=== PATIENT | male | born 1945 | race Caucasian/White ===

== ENCOUNTER 2017-11-22 15:37 | Emergency (ER) | payer MEDICARE, OTHER ==
[~2017-11-22] VITALS: Ht 167.6 cm; Wt 72.9 kg
--- OUTSIDE RECORDS SUMMARY | ~2017-11-22 | XMS | Clinical Summary ---
Demographics + + + | Address | [address] | | | [place] [address] | + + + | Home Phone | | + + + | Preferred Language | Unknown | + + + | Marital Status | | + + + | Congregation Affiliation | Unknown | + + + | Race | Unknown | + + + | Ethnic Group | Other Race | + + + Author + + + | Author | [facility] | + + + | Organization | [facility] | + + + | Address | Unknown | + + + | Phone | Unavailable | + + + Support +------+ + + + +-------+ | Name | Relationship | Address | Phone | +------+ + + + +-------+ ECON | [address] | | [place] | [address] | +------+ + + + +-------+ Care Team Providers + +------+ + | Care Account Representative Name | Role | Phone | + +------+ + | Matt Vora MD | PP | | + +------+ + Source Comments HESHAM is fully live on both EpicCare Ambulatory and EpicCare InPatient.[facility] Allergies + + + + + + | Active Allergy | Reactions | Severity | Noted | Comments | | | | | Date | | + + + + + + | Codeine | Hallucinations | | 12/29/19 | Fells like someone | | | | | 18 | is tickling the | | | | | | palms of his hands | | | | | | and feet | + + + + + + | Oxycodone | Tremors | | 12/29/19 | | | | | | 18 | | + + + + + + Current Medications + + +---------+---------+------+------+-------+ | Prescription | Sig. | Disp. | Refills | Star | End | Statu | | | | | | t | Date | s | | | | | | Date | | | + + +---------+---------+------+------+-------+ | levothyroxine 37.5 | Take 37.5 mcg by | | | | | Activ | | mcg oral tablet | mouth once daily. | | | | | e | + + +---------+---------+------+------+-------+ | doxazosin 2 mg | Take 2 mg by mouth | | | | | Activ | | oral tablet | once daily. | | | | | e | + + +---------+---------+------+------+-------+ | aspirin EC 81 mg | Take 81 mg by mouth | | | | | Activ | | oral tablet,delayed | once daily. | | | | | e | | release (DR/EC) | | | | | | | + + +---------+---------+------+------+-------+ | | Take 1 capsule by | 30 | 6 | 05/1 | | Activ | | triamterene-hydrochl | mouth once daily in | capsule | | 8/20 | | e | | orothiazide | the morning. 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 | + + + | Dizziness | 01/11/2017 | + + + | Bilateral tinnitus | 01/11/2017 | + + + Social History + +-------+ +--------+------+ | Tobacco Use | Types | Packs/Day | Years | Date | | | | | Used | | + +-------+ +--------+------+ | Never Smoker | | | | | + +-------+ +--------+------+ + +---+---+---+ | Smokeless Tobacco: | | | | | Never Used | | | | + +---+---+---+ + + +---------+ + | Alcohol Use | Drinks/We | oz/Week | Comments | | | ek | | | + + +---------+ + | No | | | | + + +---------+ + + + + | Sex Assigned at | Date Recorded | | | | + + + | Not on file | | + + + Last Filed Vital Signs + +---------+ + | Vital Sign | Reading | Time Taken | + +---------+ + | Blood Pressure | 160/72 | 12/28/2016 2:44 PM PDT | + +---------+ + | Pulse | 66 | 12/28/2016 2:44 PM PDT | + +---------+ + | Temperature | - | - | + +---------+ + | Respiratory Rate | - | - | + +---------+ + | Oxygen Saturation | - | - | + +---------+ + | Inhaled Oxygen | - | - | | Concentration | | | + +---------+ + | Weight | - | - | + +---------+ + | Height | - | - | + +---------+ + | Body Mass Index | - | - | + +---------+ + Plan of Treatment + + + + + | Health Maintenance | Due Date | Last Done | Comments | + + + + + | INFLUENZA VACCINE | | | | | (FLU SHOT) | 7 | | | + + + + + Results Not on filefrom Last 3 Months"
--- OUTSIDE RECORDS SUMMARY | ~2017-11-22 | XMS | Clinical Summary ---
Demographics + + + | Address | [address] | | | [place] [address] | + + + | Home Phone | | + + + | Preferred Language | Unknown | + + + | Marital Status | | + + + | Mandaen Affiliation | Unknown | + + + [...] +------+ + + + +-------+ ECON | [address] | | [place] | [address] | +------+ + + + +-------+ Care Team Providers + +------+ + | Care Fire Suppression Captain Name | Role | Phone | + +------+ + | Matt Vora MD | PP | | + +------+ + Source Comments [facility] is fully live on both EpicCare Ambulatory and EpicCare InPatient.[facility] Allergies + + + + + [...]
[~2017-11-22 15:37] MED LIST: ASPIRIN EC81 MG PO; DOXAZOSIN MESYLA1 MG PO; LEVOTHYROXINE75 MCG PO
[2017-11-22] MEDS ORDERED: METHYLPREDNISOLO4 M1 PO (15:59)
== END 2017-11-22 16:46 | disposition home or self-care (01) ==
LOC: ED 15:37
DX: L29.9 Pruritus, unspecified (principal); R06.02 Shortness of breath; T37.8X5A Adverse effect of other specified systemic anti-infectives and antiparasitics, initial encounter; Z88.5 Allergy status to narcotic agent; Z88.8 Allergy status to other drugs, medicaments and biological substances; Z79.82 Long term (current) use of aspirin; Z79.899 Other long term (current) drug therapy
CPT/HCPCS: 96374; 96376; 99282; J1200

== ENCOUNTER 2018-04-10 08:55 | Day surgery (SDC) | payer MEDICARE, OTHER ==
[~2018-04-10] VITALS: Ht 167.6 cm; Wt 72.6 kg
[~2018-04-10 08:55] MED LIST changes: +CARDURA2 MG PO; +CO Q-10400 MG PO; +FISH OIL 1,0001 EAC2 NG; +MAGNESIUM250 M1 PO; +METHYLPREDNISOLO4 M1 PO; +MULTIVITAMINS1 EAC8 PO
--- NOTE | 2018-04-10 12:00 | NUR ---
04/10/18 1200 Dorita Jansen 1155 PT ARRIVED TP PACU NONAROUSABLE ON 10L VIA MASK. ORAL AIRWAY IN PLACE, RESP EVEN AND UNLABORED.
--- NOTE | 2018-04-10 12:48 | NUR ---
DANIEL 1235: PT IS BACK TO DS FROM PACU. HE IS AWAKE AND OREINTED. HE REPORTS MINIMAL PAIN. PT STATES HE IS THIRSTY AND HUNGRY, HE IS GIVEN ICE WATER, PUDDING, AND JELLO. CALL LIGHT IS WITHIN REACH. IS AT THE BEDSIDE. NO OTHER C/O'S AT THIS TIME. WILL REASSESS WITHIN THE HOUR.
--- NOTE | 2018-04-10 13:27 | NUR ---
DANIEL 1320: PT HELPED UP OOB TO THE BATHROOM. HE REPORTS FEEL MUCH BETTER AFTER VOIDING. HE IS HELPED BACK INTO BED AND DENIES NEEDING ANYTHING.
--- NOTE | 2018-04-10 13:35 | NUR ---
PT IS RESTING COMFORTABLY IN HIS ROOM. WAITING FOR TO RETURN TO BEGIN DC PROCESS.
--- NOTE | 2018-04-10 13:59 | NUR ---
PT HAS MET DC CRITERIA AND IS ABLE TO BE DISCHARGED. DC INSTRUCTIONS ARE VERBALLY GIVEN WITH PRESENT. QUESTIONS ARE ASKED AND ANSWERED. PT IS TAKEN TO VEHICLE IN WHEELCHAIR.
--- NOTE | 2018-04-10 16:06 | OR ---
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 PROCEDURE PERFORMED: Septoplasty cautery, bilateral inferior turbinates. ANESTHESIA: General LMA. ANESTHESIOLOGIST: Rowena Olivas.NAime. PREOPERATIVE HISTORY: Mr. Mark is a 72-year-old man with a long history of nasal obstruction due to septal deformity and inferior turbinate hypertrophy unresponsive to appropriate medications. He is taken to the operating for the above-mentioned procedures. OPERATIVE PROCEDURE AND FINDINGS: After informed consent, the patient was taken to the operating room and placed in supine position where general LMA anesthesia was induced. The patient and procedure verified. The patient received preoperative intranasal oxymetazoline and intravenous Ancef. Headlight speculum exam of the nasal cavity showed a significant septal deformity on the left, a large spur inferiorly posteriorly. This was injected with 1% lidocaine with epinephrine. The spur and the septal deformity were then removed with Alta. The airway was improved. Airway improved further with speculum reduction. The inferior turbinates were then cauterized with a long handle needle point cautery starting on the left side. Multiple passes transmucosal on the medial and inferior surface of the inferior turbinate starting anteriorly extending all the way back posteriorly. Excellent reduction in size of the turbinate and improvement in the nasal passage was obtained. Same procedure on the right inferior turbinate. Minimal bleeding stopped afterwards. Packing was then placed, trimmed Merocel in equal amount each side, and coated with Neosporin tied anteriorly over a pad. The pharynx was suctioned clear Electronically Signed By: ZECHARIAH ZAHNG MD 04/10/18 1606 PATIENT NAME: DEAN MARK OPERATIVE REPORT DATE OF : 47 REPORT #: [id number] PHYSICIAN: ZECHARIAH ZHANG MD PCP: DANILO MARQUEZ MD REPORT IS CONFIDENTIAL AND NOT TO BE RELEASED WITHOUT AUTHORIZATION [facility] [address] [place], [place] [address], [place] [address] Signed of blood and secretions. The patient was then awakened, extubated, and transported to the recovery room in good condition. COMPLICATIONS: No complications. BLOOD LOSS: Minimal. SPECIMEN: None. DRAINS: None. PACKING: One piece of Merocel to each nostril. Zechariah Zhang MD GC/MODL /[id number] Copies: ~ Electronically Signed By: ZECHARIAH ZHANG MD 04/10/18 1606 PATIENT NAME: DEAN MARK OPERATIVE REPORT DATE OF : 47 REPORT #: [id number] PHYSICIAN: ZECHARIAH ZHANG MD PCP: DANILO MARQUEZ MD REPORT IS CONFIDENTIAL AND NOT TO BE RELEASED WITHOUT AUTHORIZATION
== END 2018-04-10 13:58 | disposition home or self-care (01) ==
LOC: DS 08:55 → OPS 08:55 → DS 10:30 → OPS 13:58
PROVIDERS: Otolaryngology
PROC: 09SM0ZZ Reposition Nasal Septum, Open Approach (ICD-10-PCS; principal; 2018-04-10 10:30)
PROC: 095L7ZZ Destruction of Nasal Turbinate, Via Natural or Artificial Opening (ICD-10-PCS; 2018-04-10 10:30)
DX: J34.2 Deviated nasal septum (principal); J34.3 Hypertrophy of nasal turbinates; J32.9 Chronic sinusitis, unspecified; H91.92 Unspecified hearing loss, left ear; Z79.899 Other long term (current) drug therapy
CPT/HCPCS: J0690; J1100; J2250; J2405; J2704; J3010; J7120

== ENCOUNTER 2025-09-24 05:35 | Day surgery (SDC) | payer MEDICARE, OTHER ==
[~2025-09-24] VITALS: Ht 167.6 cm; Wt 73.0 kg
[~2025-09-24 05:35] MED LIST changes: +ASPIRIN REGIMEN81 MG PO; +LACTATED RINGER'S 1,000 ML IV SCH
[2025-09-24] MEDS ORDERED: KETOROLAC TROMETHAMINE 30 MG/ML VIAL ONE ×2 (06:18→06:19)
[2025-09-24 06:23] VITALS: BP 126/84
[2025-09-24] MEDS ORDERED: LIDOCAINE HCL 2% 5 ML SDV ONE (06:44)
[2025-09-24] MEDS ORDERED: DEXAMETHASONE SOD PHOS 4 MG/ML VIAL ONE (06:44)
[2025-09-24] MEDS ORDERED: ACETAMINOPHEN 1,000 MG/100 ML VIAL ONE (06:44)
[2025-09-24] MEDS ORDERED: fentaNYL citrate 100 MCG/2 ML VIAL ONE (06:44)
[2025-09-24] MEDS ORDERED: CEFAZOLIN SODIUM 2 GM in SODIUM CHLORIDE 0.9% 100 ML IV SCH (07:00)
[2025-09-24] MEDS ORDERED: LIDOCAINE HCL 1% 5 ML SDV INJ ONE (07:00)
[2025-09-24] MEDS ORDERED: IBLOOD GLUCOSE TEST STRIP 1 EA TEST VI PRN ×2 (07:00→07:30)
[2025-09-24] MEDS ORDERED: HYDROCODONE/ACETA 5/325 TAB PO PRN (07:15)
[2025-09-24] MEDS ORDERED: PROCHLORPERAZINE EDISYLATE 10 MG/2 ML VIAL IV PRN (07:30)
[2025-09-24] MEDS ORDERED: NALOXONE HCL 0.4 MG SYR IV PRN (07:30)
[2025-09-24] MEDS ORDERED: HYDROmorphone HCL 1 MG/ML SYR IV PRN (07:30)
[2025-09-24] MEDS ORDERED: fentaNYL citrate 50 MCG/ML SDV IV PRN (07:30)
[2025-09-24] MEDS ORDERED: HYDROCODON-ACE1 EA10 PO (07:36)
[2025-09-24] MEDS ORDERED: DICLOFENAC SODI75 MG PO (07:36)
--- NOTE | 2025-09-24 07:38 | NUR ---
09/24/25 0737 aMrika Rosas 2918-PATIENT ARRIVED TO PACU ON 6L MASK NONAROUSABLE ORAL AIRWAY IN PLACE RN DOING JAW TILT TO MAINTAIN OPEN AIRWAY. SR HR 60'S IVF INFUSING. DRESSING INTACT. ICE APPLIED. GOOD CAP REFILL WARMTH AND PALPABLE PEDAL PULSE.
--- NOTE | 2025-09-24 08:08 | NUR ---
PT TO DS FROM PACU VIA STRETCHER. PT IS DROWSY, BUT RESPONSIVE TO VERBAL STIMULI AND ASKING QUESTIONS APPROPRIATELY AT THIS TIME. REPORT RECEIVED FROM DONG RN, PT AT BEDSIDE. WATER PROVIDED AT BEDSIDE, CALL LIGHT WITHIN REACH, PT AND PT STATE NO FURTHER NEEDS OR QUESTIONS AT THIS TIME.
[2025-09-24 08:09] VITALS: BP 122/69
--- NOTE | 2025-09-24 08:36 | NUR ---
PT REPORTS PT HAS MINOR SHAKING. WARM BLANKETS PROVIDED. PT STATES SHAKING IS IMPROVING. PT EDUCATED ABOUT TEMPERATURE OF OPERATING ROOM AND ANESTHESIA SIDE EFFECTS. PT AND PT STATE VERBAL UNDERSTANDING. CALL LIGHT WITHIN REACH.
--- NOTE | 2025-09-24 08:50 | NUR ---
PT REPORTS NEED TO URINE VOID. PT SITS AT BEDSIDE AND STATES NO NAUSEA/DIZZINESS. PT STANDS AND REPORTS NO CHANGE. PT TO RESTROOM W/THIS RN STANDBY ASSIST. PT GAIT IS STEADY. PT URINE VOIDS 250 ML OF CLEAR/YELLOW URINE. PT BACK TO EDGE OF BED SITTING UPRIGHT. PT ASSISTING PT WITH GETTING DRESSED. CALL LIGHT WITHIN REACH. THIS RN OUTSIDE DOOR.
[2025-09-24] MEDS ORDERED: DICLOFENAC SOD 75 MG TABEC PO SCH (09:00)
[2025-09-24 09:09] VITALS: BP 128/76
--- NOTE | 2025-09-24 09:15 | NUR ---
IN PT ROOM FOR DC EDUCATION AND VS. PT AND PT STATE VERBAL UNDERSTANDING AND NO FURTHER QUESTIONS AT THIS TIME. PT OFF OF UNIT VIA WC TO PASSENGER SIDE OF 'S VEHICLE. ALL BELONGINGS IN PT POSSESSION AT THIS TIME. PT PROVIDED ICE PACK. PT AND PT REPORT NO FURTHER NEEDS AT THIS TIME.
[2025-09-24] MEDS ORDERED: SEVOFLURANE 250 ML BTL INH ONE (13:40)
--- NOTE | 2025-09-25 10:15 | OR ---
[facility] [address] [place], [place] [address] Signed DATE OF OPERATION: 09/24/2025 SURGEON: Adam Mccormick MD PREOPERATIVE DIAGNOSIS: Medial meniscus tear, right knee. POSTOPERATIVE DIAGNOSIS: Medial meniscus tear, right knee. PROCEDURE PERFORMED: Right knee arthroscopy with partial medial meniscectomy. FULL TIME PARAMEDIC: None. ANESTHESIA: General. BLOOD LOSS: Minimal. BRIEF HISTORY: Dean is a 80-year-old gentleman with progressive pain, catching and locking in his knee. MRI was consistent with the above. Risks and benefits of operative treatment were discussed with him and he elected to proceed. Once consent was obtained, he was taken to the operating room. After adequate anesthesia, he was placed on the OR table. All downside pressure points were well padded. The left leg was placed in a well-padded leg aguilar in a flexed abducted external rotated position. The right leg was placed in well-padded leg aguilar with no tourniquet. The leg was then prepped and draped in a standard sterile fashion. The portal sites were injected using 0.25% Marcaine with epinephrine. The standard inferolateral and superolateral portals were made and the scope was introduced in the knee. ARTHROSCOPIC FINDINGS: Moderate synovitis was noted throughout the knee, particularly medially. The patella was noted to track well. 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 The medial and lateral gutters were clear. ACL and PCL were intact. Lateral compartment was intact. Medial compartment showed diffuse grade 3 to grade 4 chondromalacia over Electronically Signed By: ADAM MCCORMICK MD 09/25/25 1015 PATIENT NAME: DEAN MARK OPERATIVE REPORT DATE OF : 47 REPORT #: [id number] PHYSICIAN: ADAM MCCORMICK MD PCP: RUBINA SOARES PA-C REPORT IS CONFIDENTIAL AND NOT TO BE RELEASED WITHOUT AUTHORIZATION [facility] [address] [place], [place] [address] Signed the posterior half to 2/3rd of the medial femoral condyle, grade 2 changes on the tibia. There was a complex tear extending from midbody posteriorly. DESCRIPTION OF OPERATION: Standard inferomedial portal was established after localization using a spinal needle. The straight and curved biters were then used to trim the tear back to a stable rim. There were several large articular flaps on the medial femoral condyle that were debrided using the shaver and then the meniscus was smoothed out and feathered using the shaver. The scope was withdrawn after evacuating all debris. The portals were closed with 3-0 nylon and the knee was injected with 60 mg of Toradol. Wounds were dressed with Adaptic, ABD, and Joni wrap. He tolerated the procedure well. All sponge, needle, and instrument counts were correct. Adam Mccormick MD BA/ROHAN /[id number] Copies: ~ Electronically Signed By: ADMA MCCORMICK MD 12/11/25 1015 PATIENT NAME: JASDEAN SEJAL OPERATIVE REPORT DATE OF : 47 REPORT #: [id number] PHYSICIAN: ADAM MCCORMICK MD PCP: RUBINA SOARES PA-C REPORT IS CONFIDENTIAL AND NOT TO BE RELEASED WITHOUT AUTHORIZATION
== END 2025-09-24 09:25 | disposition home or self-care (01) ==
LOC: DS 05:35
PROVIDERS: ATTEND Specialist
PROC: 0SBC4ZZ Excision of Right Knee Joint, Percutaneous Endoscopic Approach (ICD-10-PCS; principal; 2025-09-24 07:00)
DX: S83.231A Complex tear of medial meniscus, current injury, right knee, initial encounter (principal); M65.98 Unspecified synovitis and tenosynovitis, other site; M22.41 Chondromalacia patellae, right knee; I10 Essential (primary) hypertension; E03.9 Hypothyroidism, unspecified; Z88.5 Allergy status to narcotic agent; Z88.8 Allergy status to other drugs, medicaments and biological substances; X58.XXXA Exposure to other specified factors, initial encounter
CPT/HCPCS: 01400; J0131; J0688; J1100; J1885; J2003; J2405; J2704; J3010; J7121